=== PATIENT | male | born 1935 | race Caucasian/White ===

== ENCOUNTER 2022-01-30 18:04 | Inpatient (IN) | payer OTHER ==
[2022-01-30] MEDS ORDERED: Albuterol/Ipratropium 3.0-0.5 MG/3 ML Neb Soln NEB ONE (18:42)
[2022-01-30] MEDS ORDERED: methylPREDNISolone Sodium Succinate 125 MG/2 ML SDV IVPUSH ONE (18:42)
[2022-01-30] MEDS: Sodium Chloride 0.9% 10 ML Syringe FLUSH PRN ×2 (18:54→22:27)
[2022-01-30 18:57] LABS: ESTIMATED GFR 48 mL/min (>60)
[2022-01-30 19:35] LABS: CORONAVIRUS COVID-19 NAA POSITIVE (NEGATIVE)
[2022-01-30] MEDS ORDERED: REMDESIVIR 200 MG in Sodium Chloride 0.9% 250 ML IV ONE (19:40)
[2022-01-30] MEDS ORDERED: cefTRIAXone 2 GM in Sodium Chloride 0.9% 100 ML IV ONE (20:03)
[2022-01-30] MEDS: Sodium Chloride 0.9% 1,000 ML IV SCH (22:26)
[2022-01-30] MEDS: Enoxaparin 40 MG/0.4 ML Syringe SUBCUT SCH (22:27)
[2022-01-30] MEDS: Albuterol/Ipratropium 3.0-0.5 MG/3 ML Neb Soln NEB PRN (22:46)
[2022-01-31] MEDS: Albuterol/Ipratropium 3.0-0.5 MG/3 ML Neb Soln NEB PRN ×2 (06:25→21:04)
[2022-01-31] MEDS: Enoxaparin 40 MG/0.4 ML Syringe SUBCUT SCH ×2 (09:36→21:30)
[2022-01-31] MEDS: Dexamethasone 6 MG TABLET PO SCH (09:36)
[2022-01-31 10:23] LABS: VITAMIN D,25-HYDROXY 46.9 ng/ml (30.0-100.0)
[2022-01-31] MEDS: cefTRIAXone 1 GM in Sodium Chloride 0.9% 100 ML IV SCH (15:13)
[2022-01-31] MEDS ORDERED: Sodium Chloride 0.9% 250 ML ONE (19:51)
[2022-01-31] MEDS: REMDESIVIR 100 MG in Sodium Chloride 0.9% 250 ML IV SCH (20:06)
[2022-01-31] MEDS: Famotidine 20 MG Tab PO SCH (20:10)
[2022-01-31] MEDS: Nystatin Topical Powder 15 GM Bottle TOP SCH (20:11)
[2022-01-31] MEDS: Sodium Chloride 0.9% 1,000 ML IV SCH (21:26)
[2022-02-01] MEDS: Levothyroxine 75 MCG Tab PO SCH (06:12)
[2022-02-01] MEDS: Albuterol/Ipratropium 3.0-0.5 MG/3 ML Neb Soln NEB PRN (09:28)
[2022-02-01] MEDS: Dexamethasone 6 MG TABLET PO SCH (09:44)
[2022-02-01] MEDS: Famotidine 20 MG Tab PO SCH ×2 (09:44→21:08)
[2022-02-01] MEDS: Enoxaparin 40 MG/0.4 ML Syringe SUBCUT SCH ×3 (09:44→22:09)
[2022-02-01] MEDS: Nystatin Topical Powder 15 GM Bottle TOP SCH ×3 (09:45→20:50)
[2022-02-01] MEDS: Sertraline 50 MG Tab PO SCH (09:45)
[2022-02-01] MEDS: cefTRIAXone 1 GM in Sodium Chloride 0.9% 100 ML IV SCH (12:57)
[2022-02-01] MEDS: Sodium Chloride 0.9% 1,000 ML IV SCH (13:00)
[2022-02-01] MEDS: REMDESIVIR 100 MG in Sodium Chloride 0.9% 250 ML IV SCH (20:50)
[2022-02-02 06:16] LABS: ESTIMATED GFR > 60 mL/min (>60)
[2022-02-02] MEDS: Levothyroxine 75 MCG Tab PO SCH (06:59)
[2022-02-02] MEDS: Famotidine 20 MG Tab PO SCH ×2 (08:10→20:54)
[2022-02-02] MEDS: Sertraline 50 MG Tab PO SCH (08:11)
[2022-02-02] MEDS: Dexamethasone 6 MG TABLET PO SCH (08:11)
[2022-02-02] MEDS: Enoxaparin 40 MG/0.4 ML Syringe SUBCUT SCH ×3 (08:12→21:07)
[2022-02-02] MEDS: Nystatin Topical Powder 15 GM Bottle TOP SCH ×3 (08:13→20:55)
[2022-02-02] MEDS: Albuterol/Ipratropium 3.0-0.5 MG/3 ML Neb Soln NEB PRN ×3 (08:35→20:45)
[2022-02-02] MEDS: Sodium Chloride 0.9% 1,000 ML IV SCH (13:27)
[2022-02-02] MEDS: cefTRIAXone 1 GM in Sodium Chloride 0.9% 100 ML IV SCH (13:28)
[2022-02-02] MEDS: REMDESIVIR 100 MG in Sodium Chloride 0.9% 250 ML IV SCH (20:55)
[2022-02-03] MEDS: Levothyroxine 75 MCG Tab PO SCH (06:18)
[2022-02-03 06:38] LABS: ESTIMATED GFR > 60 mL/min (>60)
[2022-02-03] MEDS: Albuterol/Ipratropium 3.0-0.5 MG/3 ML Neb Soln NEB PRN ×3 (08:20→20:06)
[2022-02-03] MEDS: Enoxaparin 40 MG/0.4 ML Syringe SUBCUT SCH ×2 (09:00→22:07)
[2022-02-03] MEDS: Dexamethasone 6 MG TABLET PO SCH (09:00)
[2022-02-03] MEDS: Famotidine 20 MG Tab PO SCH ×2 (09:00→21:16)
[2022-02-03] MEDS: Nystatin Topical Powder 15 GM Bottle TOP SCH ×4 (09:01→21:16)
[2022-02-03] MEDS: Sertraline 50 MG Tab PO SCH (09:01)
[2022-02-03] MEDS: Sodium Chloride 0.9% 1,000 ML IV SCH (09:40)
[2022-02-03] MEDS: cefTRIAXone 1 GM in Sodium Chloride 0.9% 100 ML IV SCH (13:09)
[2022-02-03] MEDS: REMDESIVIR 100 MG in Sodium Chloride 0.9% 250 ML IV SCH (20:08)
[2022-02-04] MEDS: Levothyroxine 75 MCG Tab PO SCH ×2 (04:20→07:03)
[2022-02-04] MEDS: Sodium Chloride 0.9% 1,000 ML IV SCH (04:20)
[2022-02-04 06:33] LABS: ESTIMATED GFR > 60 mL/min (>60)
[2022-02-04] MEDS: Famotidine 20 MG Tab PO SCH ×2 (08:37→21:16)
[2022-02-04] MEDS: Dexamethasone 6 MG TABLET PO SCH (08:37)
[2022-02-04] MEDS: Sertraline 50 MG Tab PO SCH (08:37)
[2022-02-04] MEDS: Nystatin Topical Powder 15 GM Bottle TOP SCH ×3 (08:37→21:16)
[2022-02-04] MEDS: Enoxaparin 40 MG/0.4 ML Syringe SUBCUT SCH ×3 (08:38→21:16)
[2022-02-04] MEDS: Albuterol/Ipratropium 3.0-0.5 MG/3 ML Neb Soln NEB PRN ×2 (10:09→21:21)
[2022-02-04] MEDS ORDERED: Magnesium Sulfate/Water 2 GM in Premix Bag 1 BAG IV ONE (11:50)
[2022-02-05] MEDS: Levothyroxine 75 MCG Tab PO SCH (06:31)
[2022-02-05 07:46] LABS: ESTIMATED GFR > 60 mL/min (>60)
[2022-02-05] MEDS: Albuterol/Ipratropium 3.0-0.5 MG/3 ML Neb Soln NEB PRN (08:21)
[2022-02-05] MEDS: Nystatin Topical Powder 15 GM Bottle TOP SCH ×2 (08:55→14:44)
[2022-02-05] MEDS: Famotidine 20 MG Tab PO SCH (08:55)
[2022-02-05] MEDS: Dexamethasone 6 MG TABLET PO SCH (08:55)
[2022-02-05] MEDS: Enoxaparin 40 MG/0.4 ML Syringe SUBCUT SCH ×2 (08:55→10:06)
[2022-02-05] MEDS: Sertraline 50 MG Tab PO SCH (08:55)
[2022-02-05] MEDS ORDERED: Iopamidol 755 Mg/ML 100 ML Bottle IVPUSH ONE (09:07)
[2022-02-05] MEDS ORDERED: Sodium Chloride 0.9% 10 ML Syringe FLUSH PRN (09:07)
[2022-02-05] MEDS ORDERED: Sodium Chloride 0.9% 100 ML IV SCH (09:15)
== END 2022-02-05 19:40 | disposition home health service (06) | DRG 177 ==
LOC: JD.ED 18:04 → JD.MS 20:25
PROVIDERS: ADMIT Pediatrics; ATTEND Pediatrics
PROC: 8E0ZXY6 Isolation (ICD-10-PCS; principal; 2022-01-30)
PROC: XW033E5 Introduction of Remdesivir Anti-infective into Peripheral Vein, Percutaneous Approach, New Technology Group 5 (ICD-10-PCS; 2022-01-30)
PROC: 3E0333Z Introduction of Anti-inflammatory into Peripheral Vein, Percutaneous Approach (ICD-10-PCS; 2022-01-30)
DX: U07.1 COVID-19 (principal); J96.01 Acute respiratory failure with hypoxia; G20 Parkinson's disease; J12.82 Pneumonia due to coronavirus disease 2019; J44.1 Chronic obstructive pulmonary disease with (acute) exacerbation; I25.10 Atherosclerotic heart disease of native coronary artery without angina pectoris; E03.9 Hypothyroidism, unspecified; F32.A Depression, unspecified; F41.9 Anxiety disorder, unspecified; Z79.890 Hormone replacement therapy; G30.9 Alzheimer's disease, unspecified; F02.80 Dementia in other diseases classified elsewhere, unspecified severity, without behavioral disturbance, psychotic disturbance, mood disturbance, and anxiety; I10 Essential (primary) hypertension; Z95.1 Presence of aortocoronary bypass graft; Z79.899 Other long term (current) drug therapy; Z95.5 Presence of coronary angioplasty implant and graft; F17.210 Nicotine dependence, cigarettes, uncomplicated
CPT/HCPCS: 0240U; 36415; 36600; 71045; 71275; 80048; 80053; 81001; 82306; 82803; 83605; 83735; 83880; 84484; 85025; 85379; 86140; 87040; 93005; 94640; 94667; 94668; 94761; 94762; 96365; 96375; 97116; 97162; 97530; 99285; 93010; 99284; A9270-GY; J0248; J0696; J1650; J2930; J3475; J3490; J7030; J7050; J7620-GY; J8540; Q9967

== ENCOUNTER 2022-05-10 17:48 | Inpatient (IN) | payer OTHER ==
[2022-05-10] MEDS ORDERED: Sodium Chloride 0.9% 10 ML Syringe FLUSH PRN (18:29)
[2022-05-10] MEDS ORDERED: Albuterol 0.083% 2.5 MG/3 ML Neb Soln NEB ONE (19:39)
[2022-05-10] MEDS ORDERED: cefTRIAXone 1 GM in Sodium Chloride 0.9% 100 ML IV ONE (20:46)
[2022-05-11] MEDS ORDERED: Albuterol 0.083% 2.5 MG/3 ML Neb Soln NEB PRN (00:41)
[2022-05-11] MEDS ORDERED: Albuterol 6.7 GM Inhaler INH PRN (06:24)
[2022-05-11] MEDS: Albuterol/Ipratropium 3.0-0.5 MG/3 ML Neb Soln INH PRN ×2 (08:17→20:23)
[2022-05-11] MEDS: Enoxaparin 40 MG/0.4 ML Syringe SUBCUT SCH (08:57)
[2022-05-11] MEDS: Levothyroxine 75 MCG Tab PO SCH (08:57)
[2022-05-11] MEDS: GALANTAMINE HYDROBROMIDE 24 MG PO SCH (10:24)
[2022-05-11] MEDS: Sertraline 50 MG Tab PO SCH (10:24)
[2022-05-11] MEDS: cefTRIAXone 2 GM in Sodium Chloride 0.9% 100 ML IV SCH (13:35)
[2022-05-12] MEDS: Levothyroxine 75 MCG Tab PO SCH (06:20)
[2022-05-12] MEDS: Albuterol/Ipratropium 3.0-0.5 MG/3 ML Neb Soln INH PRN (06:29)
[2022-05-12] MEDS: Enoxaparin 40 MG/0.4 ML Syringe SUBCUT SCH (08:14)
[2022-05-12] MEDS: Sertraline 50 MG Tab PO SCH (08:15)
[2022-05-12] MEDS: GALANTAMINE HYDROBROMIDE 24 MG PO SCH (08:16)
[2022-05-12] MEDS: cefTRIAXone 2 GM in Sodium Chloride 0.9% 100 ML IV SCH (12:15)
== END 2022-05-12 12:55 | disposition home or self-care (01) | DRG 193 ==
LOC: JD.ED 17:48 → JD.ICU 20:54
PROVIDERS: ADMIT Internal Medicine; ATTEND Internal Medicine
DX: J18.9 Pneumonia, unspecified organism (principal); J96.01 Acute respiratory failure with hypoxia; G30.9 Alzheimer's disease, unspecified; F02.80 Dementia in other diseases classified elsewhere, unspecified severity, without behavioral disturbance, psychotic disturbance, mood disturbance, and anxiety; K44.0 Diaphragmatic hernia with obstruction, without gangrene; Z20.822 Contact with and (suspected) exposure to COVID-19; Z86.16 Personal history of COVID-19; Z95.1 Presence of aortocoronary bypass graft; Z95.5 Presence of coronary angioplasty implant and graft; Z79.890 Hormone replacement therapy; Z79.899 Other long term (current) drug therapy; Z87.891 Personal history of nicotine dependence
CPT/HCPCS: 36415; 71045; 80053; 83605; 83735; 83880; 84484; 85025; 86140; 87040 ×2; 87635; 93005; 94640; 99285; J3490; 81001; 94667; A9270-GY; J0696; J1650; J7620-GY; U0002

== ENCOUNTER 2023-05-04 20:44 | Emergency (ER) | payer OTHER ==
[2023-05-04 21:30] LABS: HEMATOCRIT 40.2 % (42.0-52.0); HEMOGLOBIN 12.4 gm/dl (14.0-18.0); MEAN CORPUSCULAR HEMOGLOBIN 28.8 pg (28.0-32.0); MEAN CORPUSCULAR HGB CONC 30.8 g/dl (32.0-36.0); MEAN CORPUSCULAR VOLUME 93.3 fl (83.0-99.0); MEAN PLATELET VOLUME 9.5 fl (9.4-12.4); PLATELET COUNT,PLT 231 K/mm3 (150-400); RED BLOOD CELL COUNT 4.31 M/mm3 (4.52-5.90); WHITE BLOOD CELL COUNT,WBC 6.58 K/mm3 (3.9-11.3)
[2023-05-04] MEDS ORDERED: Sodium Chloride 0.9% 1,000 ML IV ONE (21:36)
[2023-05-04 21:49] LABS: A/G RATIO 0.8 (1-2); ALBUMIN 3.3 g/dl (3.4-5.0); ANION GAP 9.4 (5-15); BILIRUBIN TOTAL 0.3 mg/dL (0.2-1.0); BUN/CREATININE RATIO 12.3 (14-18); CALCIUM 9.1 mg/dL (8.5-10.1); CREATININE 1.3 mg/dL (0.7-1.3); EST CRCL DRUG DOSING (CG) 47.42 mL/min; MAGNESIUM 1.7 mg/dL (1.8-2.4); POTASSIUM,K 4.4 mEq/L (3.5-5.1); PROTEIN TOTAL,TP 7.7 g/dl (6.4-8.2); TSH 4.281 uIU/mL (0.358-3.74)
[2023-05-04 21:57] LABS: BASE EXCESS ARTERIAL 2.9 (-2-2.0); BICARBONATE,ARTERIAL 30.3 meq/L (22.0-26.0); O2 SATURATION ARTERIAL 92.2 % (96.0-97.0); PCO2 ARTERIAL 64.5 mmHg (35.0-45.0)
[2023-05-04 22:13] LABS: LACTIC ACID 0.5 mmol/L (0.4-2.0)
[2023-05-04 22:19] LABS: BAND PERCENT MAN 1 % (0-10); BASOPHILS PERCENT MAN 0 (0.2-1.2); EOSINOPHILS PERCENT MAN 3 % (0.8-7.0); LYMPHOCYTES % ATYPICAL MANUAL 5 %; LYMPHOCYTES PERCENT MAN 41 % (20-40); MONOCYTES PERCENT MAN 8 % (2-10)
[2023-05-04 22:20] LABS: HYPOCHROMASIA FEW; OVALOCYTES 1+ SLIGHT; PLATELET COUNT ESTIMATE ADEQUATE; POIKILOCYTOSIS 1+ SLIGHT
[2023-05-05 00:11] LABS: APPEARANCE,URINE CLEAR (Clear); BILIRUBIN,URINE 1+ (Negative); COLOR,URINE YELLOW (Yellow); GLUCOSE,URINE NEGATIVE (Negative); KETONES,URINE NEGATIVE (Negative); LEUKOCYTE ESTERASE,URINE NEGATIVE (Negative); NITRITE,URINE NEGATIVE (Negative); OCCULT BLOOD,URINE NEGATIVE (Negative); PROTEIN,URINE 1+ (Negative); UROBILINOGEN,URINE 0.2 (0.2-1.0)
[2023-05-05 00:23] LABS: BACTERIA,URINE FEW /hpf (FEW); EPITHELIAL CELLS,URINE 0-5 /hpf (0-5); MUCUS,URINE MODERATE /hpf (FEW); RBC,URINE 0-5 /hpf (0-5); WBC,URINE 0-5 /hpf (0-5)
== END 2023-05-05 01:00 | disposition home or self-care (01) ==
LOC: JD.ED 20:44
DX: K64.4 Residual hemorrhoidal skin tags (principal); I50.9 Heart failure, unspecified; I48.0 Paroxysmal atrial fibrillation; I25.10 Atherosclerotic heart disease of native coronary artery without angina pectoris; Z86.16 Personal history of COVID-19; Z87.891 Personal history of nicotine dependence; Z20.822 Contact with and (suspected) exposure to COVID-19; Z79.01 Long term (current) use of anticoagulants; Z79.899 Other long term (current) drug therapy
CPT/HCPCS: 36415; 36600; 71045; 80053; 81001; 82803; 83605; 83735; 83880; 84443; 84484; 85007; 85027; 86140; 87040; 87635; 87804; 93005; 96360; 96361; 99285; J7030; U0002

== ENCOUNTER 2023-09-03 19:05 | Emergency (ER) | payer OTHER ==
[2023-09-03] MEDS ORDERED: Acetaminophen/HYDROcodone 325-5 MG Tab PO ONE (20:38)
== END 2023-09-03 20:50 | disposition home or self-care (01) ==
LOC: JD.ED 19:05
DX: S32.592A Other specified fracture of left pubis, initial encounter for closed fracture (principal); I25.10 Atherosclerotic heart disease of native coronary artery without angina pectoris; J44.9 Chronic obstructive pulmonary disease, unspecified; Z79.899 Other long term (current) drug therapy; Z79.01 Long term (current) use of anticoagulants; W18.11XA Fall from or off toilet without subsequent striking against object, initial encounter
CPT/HCPCS: 73502-26-LT; 73502-LT; 99283; 99284; A9270-GY

== ENCOUNTER 2023-09-07 03:04 | Inpatient (IN) | payer OTHER, MEDICARE ==
[2023-09-07] MEDS ORDERED: Sodium Chloride 0.9% 10 ML Syringe FLUSH PRN (03:46)
[2023-09-07] MEDS ORDERED: Albuterol/Ipratropium 3.0-0.5 MG/3 ML Neb Soln NEB ONE ×2 (03:50→04:01)
[2023-09-07] MEDS ORDERED: Sodium Chloride 0.9% 1,000 ML IV ONE (03:52)
[2023-09-07] MEDS ORDERED: Ondansetron 4 MG/2 ML SDV IVPUSH ONE (03:52)
[2023-09-07 03:55] LABS: BASOPHILS PERCENT AUTO 0.3 % (0.0-1.0); EOSINOPHILS PERCENT AUTO 0.2 % (0.0-6.0); HEMATOCRIT 42.2 % (42.0-52.0); HEMOGLOBIN 13.4 gm/dl (14.0-18.0); IMMATURE GRAN ABSOLUTE AUTO 0.05 K/mm3 (0.00-0.05); IMMATURE GRAN PERCENT AUTO 0.4 % (0.0-0.4); LYMPHOCYTES ABSOLUTE AUTO 1.4 K/mm3 (1.0-4.8); MEAN CORPUSCULAR HEMOGLOBIN 29.5 pg (28.0-32.0); MEAN CORPUSCULAR HGB CONC 31.8 g/dl (32.0-36.0); MEAN PLATELET VOLUME 9.8 fl (9.4-12.4); MONOCYTES ABSOLUTE AUTO 0.6 K/mm3 (0.0-0.8); MONOCYTES PERCENT AUTO 4.3 % (0.0-8.0); NEUTROPHILS ABSOLUTE AUTO 11.5 K/mm3 (1.8-7.7); NEUTROPHILS PERCENT AUTO 84.8 % (41.0-71.0); PLATELET COUNT,PLT 280 K/mm3 (150-400); RED BLOOD CELL COUNT 4.54 M/mm3 (4.52-5.90); WHITE BLOOD CELL COUNT,WBC 13.56 K/mm3 (3.9-11.3)
[2023-09-07 04:02] LABS: INR 1.07; PROTHROMBIN TIME 11.4 SECONDS (9.7-12.0)
[2023-09-07] MEDS ORDERED: Albuterol/Ipratropium 3.0-0.5 MG/3 ML Neb Soln ONE (04:03)
[2023-09-07 04:08] LABS: A/G RATIO 0.6 (1-2); ALANINE AMINOTRANSFERASE,ALT 19 U/L (16-63); ALBUMIN 2.9 g/dl (3.4-5.0); ALKALINE PHOSPHATASE 83 U/L (46-116); ANION GAP 16.4 (5-15); ASPARTATE AMNIOTRANSFERASE,AST 20 U/L (15-37); BILIRUBIN TOTAL 0.6 mg/dL (0.2-1.0); BLOOD UREA NITROGEN,BUN 24 mg/dL (7-18); BUN/CREATININE RATIO 12.6 (14-18); C-REACTIVE PROTEIN 4.7 mg/dL (<1.0); CALCIUM 9.2 mg/dL (8.5-10.1); CARBON DIOXIDE,CO2 25 mEq/L (21-32); CHLORIDE,CL 100 mEq/L (98-107); CREATININE 1.9 mg/dL (0.7-1.3); ESTIMATED GFR 34 mL/min (>60); GLUCOSE RANDOM 150 mg/dL (70-99); POTASSIUM,K 4.4 mEq/L (3.5-5.1); PROTEIN TOTAL,TP 8.2 g/dl (6.4-8.2); SODIUM,NA 137 mEq/L (136-145)
[2023-09-07 04:10] LABS: LACTIC ACID 1.8 mmol/L (0.4-2.0)
[2023-09-07] MEDS: Albuterol/Ipratropium 3.0-0.5 MG/3 ML Neb Soln NEB SCH ×3 (04:22→04:44)
[2023-09-07 04:35] LABS: CORONAVIRUS COVID-19 NAA NEGATIVE (NEGATIVE); INFLUENZA A NAA NEGATIVE (NEGATIVE); RESPIRATORY SYNCYTIAL VIR NAA NEGATIVE (NEGATIVE)
[2023-09-07] MEDS ORDERED: Diltiazem 25 MG/5 ML SDV IVPUSH ONE ×3 (05:09→08:18)
[2023-09-07] MEDS ORDERED: Sodium Chloride 0.9% 10 ML Syringe FLUSH ONE (05:09)
[2023-09-07] MEDS ORDERED: Iopamidol 612 MG/ML 100 ML Bottle IVPUSH ONE ×3 (05:09→05:39)
[2023-09-07] MEDS ORDERED: Diltiazem 25 MG/5 ML SDV ONE (05:15)
[2023-09-07] MEDS ORDERED: Benzocaine 20% Topical Spray UD ONE (06:03)
[2023-09-07] MEDS ORDERED: ceFAZolin 2 GM in Sodium Chloride 0.9% 50 ML IV SCH (07:30)
[2023-09-07] MEDS ORDERED: Famotidine 20 MG/2 ML SDV IV SCH (09:00)
[2023-09-07] MEDS ORDERED: Famotidine 20 MG/2 ML SDV IVPUSH ONE ×2 (09:50→10:00)
[2023-09-07] MEDS: Famotidine 20 MG/2 ML SDV IVPUSH SCH (10:09)
[2023-09-07] MEDS: Lactated Ringers 1,000 ML IV SCH ×3 (10:12→23:30)
[2023-09-07] MEDS ORDERED: fentaNYL 100 MCG/2 ML SDV ONE (10:28)
[2023-09-07] MEDS ORDERED: Succinylcholine 200 MG/10 ML MDV ONE (10:30)
[2023-09-07] MEDS ORDERED: Etomidate 2 MG/ML 20 ML SDV IVPUSH ONE (10:30)
[2023-09-07] MEDS ORDERED: traMADol 50 MG Tab PO PRN (14:01)
[2023-09-07] MEDS: Albuterol/Ipratropium 3.0-0.5 MG/3 ML Neb Soln NEB PRN ×2 (14:19→21:19)
[2023-09-07] MEDS: Ketorolac 15 MG/ML SDV IVPUSH SCH ×2 (14:36→19:57)
[2023-09-08] MEDS: Ketorolac 15 MG/ML SDV IVPUSH SCH ×4 (02:08→20:12)
[2023-09-08] MEDS: Albuterol/Ipratropium 3.0-0.5 MG/3 ML Neb Soln NEB PRN ×3 (05:42→20:45)
[2023-09-08] MEDS: Lactated Ringers 1,000 ML IV SCH (07:50)
[2023-09-08] MEDS: Famotidine 20 MG/2 ML SDV IVPUSH SCH ×2 (07:51→08:02)
[2023-09-08] MEDS: Ondansetron 4 MG/2 ML SDV IVPUSH PRN (12:03)
[2023-09-08] MEDS ORDERED: Furosemide 20 MG/2 ML VIAL IVPUSH ONE (16:00)
[2023-09-08 16:24] LABS: A/G RATIO 0.6 (1-2); ALBUMIN 2.6 g/dl (3.4-5.0); ANION GAP 12.3 (5-15); BILIRUBIN TOTAL 0.5 mg/dL (0.2-1.0); CREATININE 1.6 mg/dL (0.7-1.3); EST CRCL DRUG DOSING (CG) 36.38 mL/min; POTASSIUM,K 4.3 mEq/L (3.5-5.1); PROTEIN TOTAL,TP 7.2 g/dl (6.4-8.2)
[2023-09-08] MEDS: Albuterol/Ipratropium 3.0-0.5 MG/3 ML Neb Soln NEB SCH ×2 (17:46→21:34)
[2023-09-09] MEDS: Ketorolac 15 MG/ML SDV IVPUSH SCH ×4 (01:08→21:09)
[2023-09-09] MEDS: Albuterol/Ipratropium 3.0-0.5 MG/3 ML Neb Soln NEB SCH ×6 (01:49→21:23)
[2023-09-09] MEDS: Lactated Ringers 1,000 ML IV SCH ×2 (04:12→18:40)
[2023-09-09] MEDS: Levothyroxine 75 MCG Tab PO SCH (06:28)
[2023-09-09] MEDS: Famotidine 20 MG/2 ML SDV IVPUSH SCH (09:34)
[2023-09-09] MEDS: Losartan 50 MG Tab PO SCH (09:34)
[2023-09-09] MEDS ORDERED: Propofol 200 MG/20 ML SDV ONE (11:20)
[2023-09-09] MEDS ORDERED: Lidocaine 2% 5 ML SDV ONE (11:29)
[2023-09-10] MEDS: Albuterol/Ipratropium 3.0-0.5 MG/3 ML Neb Soln NEB SCH ×6 (01:30→21:04)
[2023-09-10] MEDS: Ketorolac 15 MG/ML SDV IVPUSH SCH ×3 (01:50→16:16)
[2023-09-10] MEDS: Levothyroxine 75 MCG Tab PO SCH (05:49)
[2023-09-10] MEDS: Famotidine 20 MG/2 ML SDV IVPUSH SCH (08:11)
[2023-09-10] MEDS: Losartan 50 MG Tab PO SCH (08:11)
[2023-09-10] MEDS ORDERED: Ketorolac 15 MG/ML SDV IVPUSH PRN (14:15)
[2023-09-10] MEDS: Lactated Ringers 1,000 ML IV SCH (17:06)
[2023-09-11] MEDS: Albuterol/Ipratropium 3.0-0.5 MG/3 ML Neb Soln NEB SCH ×5 (02:10→20:27)
[2023-09-11 05:04] LABS: HEMATOCRIT 37.6 % (42.0-52.0); HEMOGLOBIN 11.9 gm/dl (14.0-18.0); MEAN CORPUSCULAR HEMOGLOBIN 29.4 pg (28.0-32.0); MEAN CORPUSCULAR HGB CONC 31.6 g/dl (32.0-36.0); MEAN CORPUSCULAR VOLUME 92.8 fl (83.0-99.0); MEAN PLATELET VOLUME 9.8 fl (9.4-12.4); PLATELET COUNT,PLT 227 K/mm3 (150-400); RED BLOOD CELL COUNT 4.05 M/mm3 (4.52-5.90); WHITE BLOOD CELL COUNT,WBC 7.42 K/mm3 (3.9-11.3)
[2023-09-11] MEDS: Levothyroxine 75 MCG Tab PO SCH (05:29)
[2023-09-11 05:43] LABS: ANION GAP 12.3 (5-15); CALCIUM 8.5 mg/dL (8.5-10.1); EST CRCL DRUG DOSING (CG) 58.2 mL/min; POTASSIUM,K 3.3 mEq/L (3.5-5.1)
[2023-09-11] MEDS: Losartan 50 MG Tab PO SCH (08:08)
[2023-09-11] MEDS: Famotidine 20 MG/2 ML SDV IVPUSH SCH (08:09)
[2023-09-11] MEDS: Potassium Chloride 10 MEQ in Premix Bag 1 BAG IV SCH ×4 (08:09→12:04)
[2023-09-11] MEDS: Lactated Ringers 1,000 ML IV SCH (13:31)
[2023-09-12] MEDS: Levothyroxine 75 MCG Tab PO SCH (05:24)
[2023-09-12] MEDS: Albuterol/Ipratropium 3.0-0.5 MG/3 ML Neb Soln NEB SCH ×3 (05:43→20:22)
[2023-09-12] MEDS: Famotidine 20 MG/2 ML SDV IVPUSH SCH (08:46)
[2023-09-12] MEDS: Lactated Ringers 1,000 ML IV SCH (08:51)
[2023-09-12] MEDS: Losartan 50 MG Tab PO SCH (10:04)
[2023-09-12] MEDS ORDERED: Polyethylene Glycol 3350 Powder 17 GM Packet PO ONE (13:45)
[2023-09-12] MEDS: Potassium Chloride 20 MEQ Tab.ER PO ONE ×3 (16:26→17:11)
[2023-09-12] MEDS: Polyethylene Glycol 3350 Powder 17 GM Packet PO SCH (21:27)
[2023-09-13] MEDS: Levothyroxine 75 MCG Tab PO SCH ×2 (04:55→06:05)
[2023-09-13] MEDS: Lactated Ringers 1,000 ML IV SCH (04:55)
[2023-09-13] MEDS: Albuterol/Ipratropium 3.0-0.5 MG/3 ML Neb Soln NEB SCH ×3 (06:05→20:45)
[2023-09-13] MEDS: Losartan 50 MG Tab PO SCH (08:59)
[2023-09-13] MEDS: Famotidine 20 MG/2 ML SDV IVPUSH SCH (08:59)
[2023-09-13] MEDS: Polyethylene Glycol 3350 Powder 17 GM Packet PO SCH ×2 (08:59→21:38)
[2023-09-13] MEDS: Ondansetron 4 MG/2 ML SDV IVPUSH PRN (09:47)
[2023-09-13] MEDS: Potassium Chloride 10 MEQ in Premix Bag 1 BAG IV SCH ×3 (15:03→17:19)
[2023-09-13] MEDS ORDERED: Benzocaine 20% Topical Spray UD MUCMEM ONE (15:34)
[2023-09-14] MEDS: Lactated Ringers 1,000 ML IV SCH (04:04)
[2023-09-14] MEDS: Levothyroxine 75 MCG Tab PO SCH (05:20)
[2023-09-14] MEDS: Albuterol/Ipratropium 3.0-0.5 MG/3 ML Neb Soln NEB SCH ×3 (06:28→21:13)
[2023-09-14] MEDS: Losartan 50 MG Tab PO SCH (09:15)
[2023-09-14] MEDS: Polyethylene Glycol 3350 Powder 17 GM Packet PO SCH ×2 (09:16→22:08)
[2023-09-14] MEDS: Famotidine 20 MG/2 ML SDV IVPUSH SCH (09:18)
[2023-09-14] MEDS ORDERED: metroNIDAZOLE/Normal Saline 500 MG in Premix Bag 1 BAG IV ONE (17:44)
[2023-09-14] MEDS ORDERED: ceFAZolin 2 GM in Sodium Chloride 0.9% 50 ML IV ONE (17:44)
[2023-09-14] MEDS: Albuterol/Ipratropium 3.0-0.5 MG/3 ML Neb Soln NEB PRN (18:39)
[2023-09-14] MEDS ORDERED: Bupivacaine 0.5% 30 ML SDV ONE (18:54)
[2023-09-14] MEDS ORDERED: EPINEPHrine 1 MG/ML SDV ONE (18:54)
[2023-09-14] MEDS ORDERED: Lidocaine 1% 5 ML VIAL ONE (18:54)
[2023-09-14] MEDS ORDERED: Propofol 200 MG/20 ML SDV ONE (18:54)
[2023-09-14] MEDS ORDERED: fentaNYL 250 MCG/5 ML SDV ONE (18:54)
[2023-09-14] MEDS ORDERED: Ondansetron 4 MG/2 ML SDV ONE (18:54)
[2023-09-14] MEDS ORDERED: ceFAZolin 1 GM Vial ONE (18:54)
[2023-09-14] MEDS ORDERED: Succinylcholine 200 MG/10 ML MDV ONE (18:54)
[2023-09-14] MEDS ORDERED: ceFAZolin 2 GM Vial ONE (18:59)
[2023-09-14] MEDS ORDERED: Phenylephrine 1% 10 MG/ML SDV ONE (19:35)
[2023-09-14] MEDS ORDERED: Lactated Ringers 1,000 ML ONE ×2 (19:49→19:53)
[2023-09-14] MEDS ORDERED: HYDROmorphone 0.5 MG/0.5 ML Syringe IVPUSH PRN ×2 (19:58→20:59)
[2023-09-14] MEDS ORDERED: Ondansetron 4 MG/2 ML SDV IVPUSH PRN (19:58)
[2023-09-14] MEDS ORDERED: fentaNYL 100 MCG/2 ML SDV IVPUSH PRN (19:58)
[2023-09-14] MEDS ORDERED: Sugammadex Sodium 200 MG/2 ML VIAL ONE (20:00)
[2023-09-14] MEDS ORDERED: Naloxone 0.4 MG/ML SDV IVPUSH PRN (20:59)
[2023-09-14] MEDS ORDERED: Ketorolac 30 MG/ML SDV IVPUSH SCH (21:00)
[2023-09-14] MEDS ORDERED: Ketorolac 15 MG/ML SDV IVPUSH SCH (21:05)
[2023-09-14] MEDS ORDERED: Rocuronium 50 MG/5 ML Vial ONE (21:30)
[2023-09-14] MEDS ORDERED: Lidocaine 1% PF 2 ML SDV ONE (21:30)
[2023-09-15] MEDS: Ketorolac 15 MG/ML SDV IVPUSH SCH ×4 (00:15→18:52)
[2023-09-15] MEDS: Lactated Ringers 1,000 ML IV SCH ×3 (03:49→19:45)
[2023-09-15 05:32] LABS: HEMATOCRIT 35.3 % (42.0-52.0); HEMOGLOBIN 11.1 gm/dl (14.0-18.0); MEAN CORPUSCULAR HEMOGLOBIN 29.2 pg (28.0-32.0); MEAN CORPUSCULAR HGB CONC 31.4 g/dl (32.0-36.0); MEAN CORPUSCULAR VOLUME 92.9 fl (83.0-99.0); MEAN PLATELET VOLUME 9.3 fl (9.4-12.4); PLATELET COUNT,PLT 215 K/mm3 (150-400)
[2023-09-15 05:49] LABS: ANION GAP 15.6 (5-15); BUN/CREATININE RATIO 13.8 (14-18); CALCIUM 8.4 mg/dL (8.5-10.1); CREATININE 1.6 mg/dL (0.7-1.3); EST CRCL DRUG DOSING (CG) 36.38 mL/min; POTASSIUM,K 2.6 mEq/L (3.5-5.1)
[2023-09-15] MEDS: Albuterol/Ipratropium 3.0-0.5 MG/3 ML Neb Soln NEB SCH ×3 (06:00→20:56)
[2023-09-15] MEDS: Levothyroxine 75 MCG Tab PO SCH (06:50)
[2023-09-15] MEDS: Famotidine 20 MG/2 ML SDV IVPUSH SCH (09:25)
[2023-09-15] MEDS: Atenolol 25 MG Tab PO SCH (11:05)
[2023-09-15] MEDS: Polyethylene Glycol 3350 Powder 17 GM Packet PO SCH ×2 (11:05→20:34)
[2023-09-15] MEDS: Losartan 50 MG Tab PO SCH (11:05)
[2023-09-15] MEDS ORDERED: Potassium Chloride 20 MEQ Tab.ER PO ONE ×2 (13:00→17:00)
[2023-09-15] MEDS: Potassium Chloride 10 MEQ in Premix Bag 1 BAG IV SCH ×4 (13:07→16:56)
[2023-09-16] MEDS: Ketorolac 15 MG/ML SDV IVPUSH SCH ×3 (02:30→11:45)
[2023-09-16] MEDS: Albuterol/Ipratropium 3.0-0.5 MG/3 ML Neb Soln NEB SCH ×3 (06:06→20:52)
[2023-09-16] MEDS: Levothyroxine 75 MCG Tab PO SCH (06:16)
[2023-09-16] MEDS: Losartan 50 MG Tab PO SCH (09:10)
[2023-09-16] MEDS: Famotidine 20 MG/2 ML SDV IVPUSH SCH (09:10)
[2023-09-16] MEDS: Polyethylene Glycol 3350 Powder 17 GM Packet PO SCH ×2 (09:10→20:43)
[2023-09-16] MEDS: Atenolol 25 MG Tab PO SCH (09:10)
[2023-09-16 09:34] LABS: BASOPHILS PERCENT AUTO 0.2 % (0.0-1.0); EOSINOPHILS ABSOLUTE AUTO 0.3 K/mm3 (0.0-0.4); EOSINOPHILS PERCENT AUTO 2.6 % (0.0-6.0); HEMATOCRIT 37.2 % (42.0-52.0); HEMOGLOBIN 11.6 gm/dl (14.0-18.0); IMMATURE GRAN ABSOLUTE AUTO 0.04 K/mm3 (0.00-0.05); IMMATURE GRAN PERCENT AUTO 0.4 % (0.0-0.4); LYMPHOCYTES ABSOLUTE AUTO 1.9 K/mm3 (1.0-4.8); LYMPHOCYTES PERCENT AUTO 17.3 % (24.0-44.0); MEAN CORPUSCULAR HEMOGLOBIN 29.4 pg (28.0-32.0); MEAN CORPUSCULAR HGB CONC 31.2 g/dl (32.0-36.0); MEAN CORPUSCULAR VOLUME 94.4 fl (83.0-99.0); MEAN PLATELET VOLUME 9.7 fl (9.4-12.4); MONOCYTES ABSOLUTE AUTO 0.5 K/mm3 (0.0-0.8); MONOCYTES PERCENT AUTO 4.9 % (0.0-8.0); NEUTROPHILS ABSOLUTE AUTO 8.3 K/mm3 (1.8-7.7); NEUTROPHILS PERCENT AUTO 74.6 % (41.0-71.0); PLATELET COUNT,PLT 207 K/mm3 (150-400); RED BLOOD CELL COUNT 3.94 M/mm3 (4.52-5.90); WHITE BLOOD CELL COUNT,WBC 11.05 K/mm3 (3.9-11.3)
[2023-09-16 09:49] LABS: ANION GAP 8.4 (5-15); BUN/CREATININE RATIO 15.3 (14-18); CALCIUM 8.8 mg/dL (8.5-10.1); CREATININE 1.5 mg/dL (0.7-1.3); EST CRCL DRUG DOSING (CG) 38.8 mL/min; MAGNESIUM 1.5 mg/dL (1.8-2.4)
[2023-09-16 10:22] LABS: POTASSIUM,K 2.4 mEq/L (3.5-5.1)
[2023-09-16] MEDS ORDERED: Magnesium Oxide 400 MG Tab PO ONE (11:00)
[2023-09-16] MEDS ORDERED: Potassium Chloride 20 MEQ Tab.ER PO ONE (11:28)
[2023-09-16] MEDS ORDERED: Magnesium Sulfate/Water 2 GM in Premix Bag 1 BAG IV ONE (11:30)
[2023-09-16] MEDS ORDERED: Potassium Chloride 10 MEQ in Premix Bag 1 BAG IV SCH (13:15)
[2023-09-16] MEDS ORDERED: Lactated Ringers 500 ML IV ONE (13:30)
[2023-09-16] MEDS: Potassium Chloride 10 MEQ in Premix Bag 1 BAG IV SCH ×6 (16:29→23:17)
[2023-09-17] MEDS: Lactated Ringers 1,000 ML IV SCH (03:28)
[2023-09-17] MEDS: Albuterol/Ipratropium 3.0-0.5 MG/3 ML Neb Soln NEB SCH (05:24)
[2023-09-17] MEDS: Levothyroxine 75 MCG Tab PO SCH (05:49)
[2023-09-17 07:04] LABS: CORONAVIRUS COVID-19 NAA NEGATIVE (NEGATIVE); INFLUENZA A NAA NEGATIVE (NEGATIVE); RESPIRATORY SYNCYTIAL VIR NAA NEGATIVE (NEGATIVE)
[2023-09-17 08:15] LABS: HEMATOCRIT 38.4 % (42.0-52.0); HEMOGLOBIN 12.2 gm/dl (14.0-18.0); MEAN CORPUSCULAR HEMOGLOBIN 29.2 pg (28.0-32.0); MEAN CORPUSCULAR HGB CONC 31.8 g/dl (32.0-36.0); MEAN CORPUSCULAR VOLUME 91.9 fl (83.0-99.0); MEAN PLATELET VOLUME 10.1 fl (9.4-12.4); PLATELET COUNT,PLT 184 K/mm3 (150-400); RED BLOOD CELL COUNT 4.18 M/mm3 (4.52-5.90); WHITE BLOOD CELL COUNT,WBC 10.79 K/mm3 (3.9-11.3)
[2023-09-17] MEDS: Atenolol 25 MG Tab PO SCH (08:43)
[2023-09-17] MEDS: Famotidine 20 MG/2 ML SDV IVPUSH SCH (08:43)
[2023-09-17] MEDS: Polyethylene Glycol 3350 Powder 17 GM Packet PO SCH (08:43)
[2023-09-17] MEDS: Losartan 50 MG Tab PO SCH (08:43)
[2023-09-17 09:03] LABS: A/G RATIO 0.4 (1-2); ANION GAP 10.9 (5-15); BILIRUBIN TOTAL 0.6 mg/dL (0.2-1.0); CALCIUM 9.3 mg/dL (8.5-10.1); CREATININE 1.4 mg/dL (0.7-1.3); EST CRCL DRUG DOSING (CG) 41.57 mL/min; POTASSIUM,K 2.9 mEq/L (3.5-5.1); PROTEIN TOTAL,TP 6.5 g/dl (6.4-8.2)
[2023-09-17] MEDS ORDERED: Potassium Chloride 20 MEQ Tab.ER PO ONE (09:30)
== END 2023-09-17 12:42 | DRG 331 ==
LOC: JD.ED 03:04 → OBSVTOIN 07:09 → JD.MS 07:09 → INTOOBSV 07:09 → OBSVTOIN 09-10 08:41
PROVIDERS: ADMIT Specialist; ATTEND Specialist
PROC: 0D9K8ZZ Drainage of Ascending Colon, Via Natural or Artificial Opening Endoscopic (ICD-10-PCS; 2023-09-07)
PROC: 0D9L8ZZ Drainage of Transverse Colon, Via Natural or Artificial Opening Endoscopic (ICD-10-PCS; 2023-09-07)
PROC: 0D9M8ZZ Drainage of Descending Colon, Via Natural or Artificial Opening Endoscopic (ICD-10-PCS; 2023-09-07)
PROC: 0D9H8ZZ Drainage of Cecum, Via Natural or Artificial Opening Endoscopic (ICD-10-PCS; 2023-09-07)
PROC: 0D9K8ZZ Drainage of Ascending Colon, Via Natural or Artificial Opening Endoscopic (ICD-10-PCS; 2023-09-09)
PROC: 0D9L8ZZ Drainage of Transverse Colon, Via Natural or Artificial Opening Endoscopic (ICD-10-PCS; 2023-09-09)
PROC: 0D9N8ZZ Drainage of Sigmoid Colon, Via Natural or Artificial Opening Endoscopic (ICD-10-PCS; 2023-09-09)
PROC: 0D9M8ZZ Drainage of Descending Colon, Via Natural or Artificial Opening Endoscopic (ICD-10-PCS; 2023-09-09)
PROC: 0D1K0Z4 Bypass Ascending Colon to Cutaneous, Open Approach (ICD-10-PCS; principal; 2023-09-14 19:00)
DX: K59.81 Ogilvie syndrome (principal); K63.89 Other specified diseases of intestine; I10 Essential (primary) hypertension; I48.91 Unspecified atrial fibrillation; J44.9 Chronic obstructive pulmonary disease, unspecified; G30.9 Alzheimer's disease, unspecified; E03.9 Hypothyroidism, unspecified; I25.810 Atherosclerosis of coronary artery bypass graft(s) without angina pectoris; Z96.642 Presence of left artificial hip joint; F02.80 Dementia in other diseases classified elsewhere, unspecified severity, without behavioral disturbance, psychotic disturbance, mood disturbance, and anxiety; I25.10 Atherosclerotic heart disease of native coronary artery without angina pectoris; Z95.1 Presence of aortocoronary bypass graft; S32.592D Other specified fracture of left pubis, subsequent encounter for fracture with routine healing; Z99.81 Dependence on supplemental oxygen; Z79.51 Long term (current) use of inhaled steroids; Z79.01 Long term (current) use of anticoagulants; Z20.822 Contact with and (suspected) exposure to COVID-19; Z95.5 Presence of coronary angioplasty implant and graft; Z98.890 Other specified postprocedural states; Z11.52 Encounter for screening for COVID-19; Z86.16 Personal history of COVID-19; Z79.899 Other long term (current) drug therapy
CPT/HCPCS: 0241U; 36415; 51798; 71045; 74018; 74177; 80048; 80053; 83605; 83735; 84484; 85025; 85027; 85610; 86140; 87040; 93005; 94640; 94760; 94761; 94762; 97110; 97116; 97162; 97530; 00811; 00840; 99100; 99140; 99285; A9270-GY; C1758; J0171; J0330; J0665; J0690; J1836; J1885; J1940; J2371; J2405; J2704; J3010; J3475; J3480; J3490; J7030; J7120; J7620-GY; Q9967

== ENCOUNTER 2023-09-23 18:37 | Emergency (ER) | payer MEDICARE, OTHER ==
[2023-09-23] MEDS ORDERED: Sodium Chloride 0.9% 10 ML Syringe FLUSH PRN (19:07)
[2023-09-23] MEDS ORDERED: Albuterol/Ipratropium 3.0-0.5 MG/3 ML Neb Soln NEB ONE (19:27)
[2023-09-23 19:36] LABS: BASOPHILS PERCENT AUTO 0.4 % (0.0-1.0); EOSINOPHILS ABSOLUTE AUTO 0.4 K/mm3 (0.0-0.4); HEMATOCRIT 40.6 % (42.0-52.0); HEMOGLOBIN 12.6 gm/dl (14.0-18.0); IMMATURE GRAN ABSOLUTE AUTO 0.01 K/mm3 (0.00-0.05); IMMATURE GRAN PERCENT AUTO 0.2 % (0.0-0.4); LYMPHOCYTES ABSOLUTE AUTO 1.7 K/mm3 (1.0-4.8); MEAN CORPUSCULAR HEMOGLOBIN 29.4 pg (28.0-32.0); MEAN CORPUSCULAR VOLUME 94.9 fl (83.0-99.0); MEAN PLATELET VOLUME 9.4 fl (9.4-12.4); MONOCYTES ABSOLUTE AUTO 0.3 K/mm3 (0.0-0.8); MONOCYTES PERCENT AUTO 6.1 % (0.0-8.0); NEUTROPHILS ABSOLUTE AUTO 2.9 K/mm3 (1.8-7.7); NEUTROPHILS PERCENT AUTO 54.3 % (41.0-71.0); PLATELET COUNT,PLT 297 K/mm3 (150-400); RED BLOOD CELL COUNT 4.28 M/mm3 (4.52-5.90); WHITE BLOOD CELL COUNT,WBC 5.28 K/mm3 (3.9-11.3)
[2023-09-23 20:04] LABS: LACTIC ACID 0.9 mmol/L (0.4-2.0)
[2023-09-23 20:15] LABS: A/G RATIO 0.4 (1-2); ALBUMIN 2.1 g/dl (3.4-5.0); BILIRUBIN TOTAL 0.3 mg/dL (0.2-1.0); BUN/CREATININE RATIO 9.2 (14-18); C-REACTIVE PROTEIN 1.2 mg/dL (<1.0); CALCIUM 8.9 mg/dL (8.5-10.1); CREATININE 1.3 mg/dL (0.7-1.3); EST CRCL DRUG DOSING (CG) 44.77 mL/min; MAGNESIUM 1.6 mg/dL (1.8-2.4); PROTEIN TOTAL,TP 6.9 g/dl (6.4-8.2)
[2023-09-23 21:59] LABS: APPEARANCE,URINE CLEAR (Clear); BILIRUBIN,URINE NEGATIVE (Negative); COLOR,URINE YELLOW (Yellow); GLUCOSE,URINE NEGATIVE (Negative); KETONES,URINE NEGATIVE (Negative); LEUKOCYTE ESTERASE,URINE NEGATIVE (Negative); NITRITE,URINE NEGATIVE (Negative); OCCULT BLOOD,URINE NEGATIVE (Negative); PROTEIN,URINE 1+ (Negative); UROBILINOGEN,URINE 0.2 (0.2-1.0)
[2023-09-23 22:16] LABS: RBC,URINE 0-5 /hpf (0-5); SQUAMOUS EPITHELIAL CELLS,UR 0-5 /hpf (0-5); WBC,URINE 0-5 /hpf (0-5)
[2023-09-23 22:17] LABS: BACTERIA,URINE FEW /hpf (FEW); MUCUS,URINE FEW /hpf (FEW)
[2023-09-23] MEDS ORDERED: Cephalexin 250 MG/5 ML Susp 100 ML Bottle PO ONE (22:49)
[2023-09-24] MEDS ORDERED: Cephalexin 500 MG Cap PO ONE
== END 2023-09-24 00:32 | disposition home or self-care (01) ==
LOC: JD.ED 18:37
DX: L03.311 Cellulitis of abdominal wall (principal); L98.421 Non-pressure chronic ulcer of back limited to breakdown of skin; E03.9 Hypothyroidism, unspecified; Z79.899 Other long term (current) drug therapy; Z86.16 Personal history of COVID-19
CPT/HCPCS: 36415; 71045; 71045-26; 80053; 81001; 83605; 83735; 83880; 84484; 85025; 86140; 87040; 93005; 93010; 94640; 99284; 99285; A9270-GY; C1758; J7620-GY

== ENCOUNTER 2023-10-05 10:14 | Emergency (ER) | payer OTHER ==
[2023-10-05 10:56] LABS: BASOPHILS PERCENT AUTO 0.5 % (0.0-1.0); EOSINOPHILS ABSOLUTE AUTO 0.3 K/mm3 (0.0-0.4); EOSINOPHILS PERCENT AUTO 4.7 % (0.0-6.0); HEMATOCRIT 41.1 % (42.0-52.0); HEMOGLOBIN 12.6 gm/dl (14.0-18.0); IMMATURE GRAN ABSOLUTE AUTO 0.01 K/mm3 (0.00-0.05); IMMATURE GRAN PERCENT AUTO 0.2 % (0.0-0.4); LYMPHOCYTES ABSOLUTE AUTO 2.2 K/mm3 (1.0-4.8); MEAN CORPUSCULAR HEMOGLOBIN 29.7 pg (28.0-32.0); MEAN CORPUSCULAR HGB CONC 30.7 g/dl (32.0-36.0); MEAN CORPUSCULAR VOLUME 96.9 fl (83.0-99.0); MEAN PLATELET VOLUME 9.8 fl (9.4-12.4); MONOCYTES ABSOLUTE AUTO 0.4 K/mm3 (0.0-0.8); MONOCYTES PERCENT AUTO 6.3 % (0.0-8.0); NEUTROPHILS ABSOLUTE AUTO 2.7 K/mm3 (1.8-7.7); NEUTROPHILS PERCENT AUTO 48.3 % (41.0-71.0); PLATELET COUNT,PLT 316 K/mm3 (150-400); RED BLOOD CELL COUNT 4.24 M/mm3 (4.52-5.90); WHITE BLOOD CELL COUNT,WBC 5.52 K/mm3 (3.9-11.3)
[2023-10-05] MEDS: Sodium Chloride 0.9% 10 ML Syringe FLUSH PRN (11:08)
[2023-10-05] MEDS: Iopamidol 612 MG/ML 100 ML Bottle IVPUSH ONE (11:15)
[2023-10-05 11:20] LABS: A/G RATIO 0.5 (1-2); ALBUMIN 2.7 g/dl (3.4-5.0); ANION GAP 11.2 (5-15); BILIRUBIN TOTAL 0.3 mg/dL (0.2-1.0); CALCIUM 8.9 mg/dL (8.5-10.1); EST CRCL DRUG DOSING (CG) 30.62 mL/min; PROTEIN TOTAL,TP 7.9 g/dl (6.4-8.2)
[2023-10-05 11:24] LABS: POTASSIUM,K 6.2 mEq/L (3.5-5.1)
[2023-10-05] MEDS: Calcium Gluconate 10% 1 GM/10 ML SDV IVPUSH ONE (12:45)
[2023-10-05] MEDS: Sodium Bicarbonate 8.4% 50 MEQ/50 ML Syringe IVPUSH ONE (12:45)
[2023-10-05] MEDS: Sodium Chloride 0.9% 1,000 ML IV ONE (12:45)
[2023-10-05] MEDS: Albuterol 0.083% 2.5 MG/3 ML Neb Soln NEB ONE (12:58)
[2023-10-05] MEDS: methylPREDNISolone Sodium Succinate 125 MG/2 ML SDV IVPUSH ONE (14:16)
[2023-10-05] MEDS: Albuterol/Ipratropium 3.0-0.5 MG/3 ML Neb Soln NEB ONE (14:21)
[2023-10-05 15:36] LABS: A/G RATIO 0.5 (1-2); ALBUMIN 2.7 g/dl (3.4-5.0); ANION GAP 10.5 (5-15); BILIRUBIN TOTAL 0.4 mg/dL (0.2-1.0); BUN/CREATININE RATIO 15.8 (14-18); CREATININE 1.9 mg/dL (0.7-1.3); EST CRCL DRUG DOSING (CG) 32.23 mL/min; POTASSIUM,K 5.5 mEq/L (3.5-5.1); PROTEIN TOTAL,TP 7.8 g/dl (6.4-8.2)
[2023-10-05] MEDS: Sodium Chloride 0.9% 1,000 ML IV SCH (16:43)
[2023-10-06 08:35] LABS: BASOPHILS PERCENT AUTO 0.2 % (0.0-1.0); HEMOGLOBIN 12.1 gm/dl (14.0-18.0); IMMATURE GRAN ABSOLUTE AUTO 0.03 K/mm3 (0.00-0.05); IMMATURE GRAN PERCENT AUTO 0.6 % (0.0-0.4); LYMPHOCYTES ABSOLUTE AUTO 1.4 K/mm3 (1.0-4.8); LYMPHOCYTES PERCENT AUTO 27.6 % (24.0-44.0); MEAN CORPUSCULAR HEMOGLOBIN 29.3 pg (28.0-32.0); MEAN CORPUSCULAR VOLUME 94.4 fl (83.0-99.0); MEAN PLATELET VOLUME 10.1 fl (9.4-12.4); MONOCYTES PERCENT AUTO 0.8 % (0.0-8.0); NEUTROPHILS ABSOLUTE AUTO 3.6 K/mm3 (1.8-7.7); NEUTROPHILS PERCENT AUTO 70.8 % (41.0-71.0); PLATELET COUNT,PLT 319 K/mm3 (150-400); RED BLOOD CELL COUNT 4.13 M/mm3 (4.52-5.90); WHITE BLOOD CELL COUNT,WBC 5.11 K/mm3 (3.9-11.3)
[2023-10-06 08:48] LABS: A/G RATIO 0.5 (1-2); ALBUMIN 2.6 g/dl (3.4-5.0); ANION GAP 10.9 (5-15); BILIRUBIN TOTAL 0.4 mg/dL (0.2-1.0); BUN/CREATININE RATIO 20.7 (14-18); CALCIUM 8.7 mg/dL (8.5-10.1); CREATININE 1.4 mg/dL (0.7-1.3); EST CRCL DRUG DOSING (CG) 43.74 mL/min; POTASSIUM,K 5.9 mEq/L (3.5-5.1); PROTEIN TOTAL,TP 7.6 g/dl (6.4-8.2)
[2023-10-06] MEDS: Albuterol/Ipratropium 3.0-0.5 MG/3 ML Neb Soln NEB ONE (09:36)
[2023-10-06] MEDS: methylPREDNISolone Sodium Succinate 40 MG/1 ML SDV IVPUSH ONE (10:12)
[2023-10-06] MEDS: Lactated Ringers 1,000 ML IV SCH (10:13)
[2023-10-06] MEDS: Insulin Regular, Human 100 Units/ML 3 ML Vial SUBCUT ONE (11:41)
[2023-10-06] MEDS: Calcium Gluconate 10% 1 GM/10 ML SDV IVPUSH ONE (11:46)
[2023-10-06] MEDS: 50% Dextrose in Water 50 ML Syringe IVPUSH ONE (11:49)
[2023-10-06] MEDS: Sodium Bicarbonate 8.4% 50 MEQ/50 ML Syringe IVPUSH ONE (11:51)
== END 2023-10-06 12:25 ==
LOC: JD.ED 10:14
DX: K43.5 Parastomal hernia without obstruction or gangrene (principal); J44.1 Chronic obstructive pulmonary disease with (acute) exacerbation; E87.5 Hyperkalemia; E87.6 Hypokalemia; I48.91 Unspecified atrial fibrillation; I25.10 Atherosclerotic heart disease of native coronary artery without angina pectoris; I10 Essential (primary) hypertension; E03.9 Hypothyroidism, unspecified; Z86.16 Personal history of COVID-19; Z95.1 Presence of aortocoronary bypass graft; Z79.899 Other long term (current) drug therapy; Z79.01 Long term (current) use of anticoagulants
CPT/HCPCS: 36415; 71045; 74177; 80053; 83690; 84132; 85025; 93005; 94640; 96361; 96374; 96375; 96376; 99285; J0612; J1815; J2920; J2930; J3490; J7030; J7120; Q9967; 93010; J7620-GY

== ENCOUNTER 2023-10-11 07:25 | Emergency (ER) | payer OTHER | END 2023-10-11 10:15 | disposition home or self-care (01) | LOC: JD.ED 07:25 | DX: Z43.3 Encounter for attention to colostomy (principal); I10 Essential (primary) hypertension; I25.10 Atherosclerotic heart disease of native coronary artery without angina pectoris; J44.9 Chronic obstructive pulmonary disease, unspecified; E03.9 Hypothyroidism, unspecified; Z86.16 Personal history of COVID-19; Z95.5 Presence of coronary angioplasty implant and graft; Z79.01 Long term (current) use of anticoagulants; Z79.899 Other long term (current) drug therapy | CPT/HCPCS: 99282 ==

== ENCOUNTER 2023-10-13 20:00 | Emergency (ER) | payer OTHER ==
[2023-10-13 22:15] LABS: CORONAVIRUS COVID-19 NAA NEGATIVE (NEGATIVE); INFLUENZA A NAA NEGATIVE (NEGATIVE); RESPIRATORY SYNCYTIAL VIR NAA NEGATIVE (NEGATIVE)
[2023-10-13 22:48] LABS: BASOPHILS PERCENT AUTO 0.4 % (0.0-1.0); EOSINOPHILS ABSOLUTE AUTO 0.3 K/mm3 (0.0-0.4); EOSINOPHILS PERCENT AUTO 2.6 % (0.0-6.0); HEMATOCRIT 36.1 % (42.0-52.0); HEMOGLOBIN 11.4 gm/dl (14.0-18.0); IMMATURE GRAN ABSOLUTE AUTO 0.03 K/mm3 (0.00-0.05); IMMATURE GRAN PERCENT AUTO 0.3 % (0.0-0.4); LYMPHOCYTES ABSOLUTE AUTO 2.2 K/mm3 (1.0-4.8); LYMPHOCYTES PERCENT AUTO 19.9 % (24.0-44.0); MEAN CORPUSCULAR HEMOGLOBIN 30.2 pg (28.0-32.0); MEAN CORPUSCULAR HGB CONC 31.6 g/dl (32.0-36.0); MEAN CORPUSCULAR VOLUME 95.8 fl (83.0-99.0); MEAN PLATELET VOLUME 9.7 fl (9.4-12.4); MONOCYTES ABSOLUTE AUTO 0.9 K/mm3 (0.0-0.8); MONOCYTES PERCENT AUTO 8.4 % (0.0-8.0); NEUTROPHILS ABSOLUTE AUTO 7.7 K/mm3 (1.8-7.7); NEUTROPHILS PERCENT AUTO 68.4 % (41.0-71.0); PLATELET COUNT,PLT 218 K/mm3 (150-400); RED BLOOD CELL COUNT 3.77 M/mm3 (4.52-5.90)
[2023-10-13] MEDS: Sodium Chloride 0.9% 10 ML Syringe FLUSH PRN (23:01)
[2023-10-13] MEDS: Bumetanide 1 MG/4 ML MDV IVPUSH ONE (23:04)
[2023-10-13 23:12] LABS: A/G RATIO 0.6 (1-2); ALBUMIN 2.5 g/dl (3.4-5.0); ANION GAP 11.8 (5-15); BILIRUBIN TOTAL 0.6 mg/dL (0.2-1.0); CALCIUM 8.1 mg/dL (8.5-10.1); CREATININE 1.4 mg/dL (0.7-1.3); EST CRCL DRUG DOSING (CG) 44.04 mL/min; MAGNESIUM 1.5 mg/dL (1.8-2.4); POTASSIUM,K 3.8 mEq/L (3.5-5.1); PROTEIN TOTAL,TP 6.6 g/dl (6.4-8.2)
== END 2023-10-14 00:03 | disposition home or self-care (01) ==
LOC: JD.ED 20:00
DX: K94.03 Colostomy malfunction (principal); K94.13 Enterostomy malfunction; E87.79 Other fluid overload; I25.10 Atherosclerotic heart disease of native coronary artery without angina pectoris; I10 Essential (primary) hypertension; I48.91 Unspecified atrial fibrillation; J44.9 Chronic obstructive pulmonary disease, unspecified; E03.9 Hypothyroidism, unspecified; Z86.16 Personal history of COVID-19; Z95.1 Presence of aortocoronary bypass graft; Z87.891 Personal history of nicotine dependence; Z79.01 Long term (current) use of anticoagulants; Z79.899 Other long term (current) drug therapy
CPT/HCPCS: 0241U; 36415; 71045; 80053; 83735; 85025; 96374; 99283; J3490; 99284